=== PATIENT | female | born 1960 | race Caucasian/White ===

== ENCOUNTER 2017-08-23 10:53 | Emergency (ER) | payer OTHER ==
[2017-08-23] MEDS ORDERED: Morphine 10 MG/ML Syringe IM ONE (11:31)
--- NOTE | 2017-08-23 11:34 | EDM.PDOC ---
ED HPI GENERAL MEDICAL PROBLEM - General Chief Complaint: Back Pain or Injury Stated Complaint: BACK PAIN Time Seen by Provider: 08/23/17 11:22 Source of Information: Reports: Patient, Family, RN Notes Reviewed History Limitations: Reports: No Limitations - History of Present Illness INITIAL COMMENTS - FREE TEXT/NARRATIVE: 56-year-old female presents emergency department day complaint of mid back pain , she states been going on for about 12 hours had difficulty sleeping last night has been diaphoretic at times no shortness of breath she states the pain starts in the middle of her back around her shoulder blade and radiates around to the front underneath her left breast and she does complain of left arm tingling as well. Denies any trauma or lifting injury - Related Data Allergies Allergy/AdvReac Type Severity Reaction Status Date / Time No Known Allergies Allergy Verified 08/23/17 11:07 Home Meds: Home Meds Lisinopril/Hydrochlorothiazide [Lisinopril-Hctz 20-25 mg Tab] 10/01/15 [History ] Metoprolol Succinate [Toprol XL] 10/01/15 [History] Pantoprazole [ProTONIX Granules] 10/01/15 [History] amLODIPine [Norvasc] 10/01/15 [History] metFORMIN [Glucophage] 10/01/15 [History] traZODone 10/01/15 [History] Cyclobenzaprine [Flexeril] 10 mg PO 08/23/17 [History] Diclofenac Sodium [Voltaren] 1 tab PO BID 08/23/17 [History] Past Medical History Cardiovascular History: Reports: High Cholesterol, Hypertension Gastrointestinal History: Reports: GERD Endocrine/Metabolic History: Reports: Diabetes, Type II - Past Surgical History Female Surgical History: Reports: Tubal Ligation Social & Family History - Tobacco Use Smoking Status *Q: Current Every Day Smoker Years of Tobacco use: 40 Packs/Tins Daily: 0.1 ED ROS GENERAL - Review of Systems Review Of Systems: See Below Constitutional: Reports: Diaphoresis HEENT: Reports: No Symptoms Respiratory: Reports: No Symptoms Cardiovascular: Reports: Chest Pain GI/Abdominal: Reports: No Symptoms : Reports: No Symptoms Musculoskeletal: Reports: Back Pain Skin: Reports: No Symptoms Neurological: Reports: Tingling (Left arm) ED EXAM, UPPER BACK/NECK PAIN - Physical Exam Exam: See Below Exam Limited By: No Limitations General Appearance: Alert, Mild Distress Eye Exam: Bilateral Eye: Normal Inspection Head Exam: Atraumatic, Normocephalic Neck Exam: Non-Tender, Full Range of Motion, Normal Alignment, Normal Inspection Cardiovascular/Respiratory: Regular Rate, Rhythm, No M/R/G, Normal Breath Sounds , No Respiratory Distress GI/Abdominal: Soft, Non-Tender Back Exam: Normal Inspection, Full Range of Motion. No: CVA Tenderness (R), CVA Tenderness (L) Course - Vital Signs Last Recorded V/S: Last Vital Signs Temp 96.6 F 08/23/17 11:21 Pulse 107 H 08/23/17 11:21 Resp 20 08/23/17 11:21 BP 187/117 H 08/23/17 12:10 Pulse Ox 97 08/23/17 11:21 - Orders/Labs/Meds Orders: Active Orders 24 hr Category Date Time Status Cardiac Monitoring [RC] .As Directed Care 08/23/17 11:28 Active EKG Documentation Completion [RC] ASDIRECTED Care 08/23/17 11:31 Active EKG 12 Lead [EK] Stat Ther 08/23/17 11:30 Ordered Labs: Laboratory Tests 08/23/17 08/23/17 Range/Units 11:38 11:38 WBC 10.0 (4.5-11.0) K/uL RBC 5.64 H (3.30-5.50) M/uL Hgb 16.2 H (12.0-15.0) g/dL Hct 46.7 (36.0-48.0) % MCV 83 (80-98) fL MCH 29 (27-31) pg MCHC 35 (32-36) % Plt Count 275 (150-400) K/uL Neut % (Auto) 61 (36-66) % Lymph % (Auto) 28 (24-44) % [place] % (Auto) 7 H (2-6) % Eos % (Auto) 3 (2-4) % Baso % (Auto) 0 (0-1) % Sodium 141 (140-148) mmol/L Potassium 4.2 (3.6-5.2) mmol/L Chloride 106 (100-108) mmol/L Carbon Dioxide 25 (21-32) mmol/L Anion Gap 10.2 (5.0-14.0) mmol/L BUN 11 (7-18) mg/dL Creatinine 0.7 (0.6-1.0) mg/dL Est Cr Clr Drug Dosing 85.01 mL/min Estimated GFR (MDRD) > 60 (>60) Glucose 133 H (74-106) mg/dL Calcium 9.3 (8.5-10.1) mg/dL Total Bilirubin 0.6 (0.2-1.0) mg/dL AST 17 (15-37) U/L ALT 56 (12-78) U/L Alkaline Phosphatase 71 (46-116) U/L Troponin I < 0.017 (0.000-0.056) ng/mL Total Protein 7.4 (6.4-8.2) g/dL Albumin 4.0 (3.4-5.0) g/dL Globulin 3.4 (2.3-3.5) g/dL Albumin/Globulin Ratio 1.2 (1.2-2.2) Meds: Medications Discontinued Medications Generic Name Dose Route Start Last Admin Trade Name Guanaco PRN Reason Stop Dose Admin Morphine Sulfate 5 mg 08/23/17 11:31 08/23/17 11:48 Morphine IM 08/23/17 11:32 5 mg ONETIME ONE Administration Departure - Departure Time of Disposition: 12:33 Disposition: Home, Self-Care 01 Condition: Good Clinical Impression: Mid back pain - Discharge Information Referrals: Adam Corea MD [Primary Care Provider] - Forms: ED Department Discharge Additional Instructions: Continue to use her diclofenac as needed, in combination with Flexeril for baseline pain control, for breakthrough pain use the hydrocodone, Please followup with your primary care provider in 3-5 days if not better, please call return to the emergency department with worsening of symptoms. - My Orders Last 24 Hours: My Active Orders 08/23/17 11:28 Cardiac Monitoring [RC] .As Directed 08/23/17 11:30 EKG 12 Lead [EK] Stat 08/23/17 11:31 EKG Documentation Completion [RC] ASDIRECTED - Assessment/Plan Last 24 Hours: My Active Orders 08/23/17 11:28 Cardiac Monitoring [RC] .As Directed 08/23/17 11:30 EKG 12 Lead [EK] Stat 08/23/17 11:31 EKG Documentation Completion [RC] ASDIRECTED Plan: Assessment Acuity = acute Site and laterality = mid back thoracic pain left side Etiology = probably related to muscle spasm Manifestations = none Location of injury = Home Lab values = CBC, CMP, troponin all within normal limits EKG demonstrates a sinus rhythm no ST changes or depressions Plan She had good relief with 5 mg morphine provided should discharged home with hydrocodone 5/325 one tablet by mouth 3 times a day when necessary total #6 tablets she'll continue to use the Diflucan intact and Flexeril that she has at home follow-up with primary care 3-5 days if no improvement This note was dictated using [employer] voice recognition software please call with any questions on syntax or jerod.
[2017-08-23 12:19] VITALS: BP 187/117
== END 2017-08-23 12:42 | disposition home or self-care (01) ==
LOC: JP.ED 10:53
DX: M54.6 Pain in thoracic spine (principal); E78.00 Pure hypercholesterolemia, unspecified; I10 Essential (primary) hypertension; E11.9 Type 2 diabetes mellitus without complications; Z79.84 Long term (current) use of oral hypoglycemic drugs; F17.210 Nicotine dependence, cigarettes, uncomplicated; K21.9 Gastro-esophageal reflux disease without esophagitis
CPT/HCPCS: 36415; 80053; 84484; 85025; 93005; 96372; 99284; J2270

== ENCOUNTER 2017-11-07 08:39 | Day surgery (SDC) | payer OTHER ==
[2017-11-07] MEDS ORDERED: Propofol 200 MG/20 ML SDV ONE (08:54)
[2017-11-07] MEDS ORDERED: Midazolam 1 MG/ML 2 ML SDV ONE (08:54)
[2017-11-07] MEDS ORDERED: fentaNYL 100 MCG/2 ML SDV ONE (08:54)
[2017-11-07] MEDS ORDERED: Glycopyrrolate 0.2 MG/ML 2 ML SDV IVPUSH ONE (09:45)
[2017-11-07] MEDS ORDERED: Dextrose 5%-Lactated Ringers 1,000 ML IV SCH (09:45)
[2017-11-07 11:05] VITALS: BP 118/74
--- NOTE | 2017-11-11 11:20 | OR ---
DATE OF PROCEDURE: 11/07/2017 PREOPERATIVE DIAGNOSES: Severe gastroesophageal reflux symptoms and epigastric pain with postprandial bloating. POSTOPERATIVE DIAGNOSIS: Severe esophagitis with retained food within the esophagus and large gastric bezoar. OPERATIVE PROCEDURE: Upper GI endoscopy with biopsies of antrum for CLOtest ([id number]). ANESTHESIA: IV sedation. INDICATION FOR PROCEDURE: A 56-year-old longstanding diabetic presenting with complex picture of severe reflux symptoms occasionally associated with some aspiration of esophageal contents and postprandial bloating and discomfort. She has been on an anti-bezoar diet with the assumption that we are dealing with some degree of gastroparesis. Plan is to proceed with upper GI endoscopy with biopsies as indicated. Potential risks, including bleeding and perforation, were discussed, and the patient wishes to proceed. DETAILS OF PROCEDURE: The patient was taken to the operating room and placed in a left lateral decubitus position. IV sedation was administered, after which the upper GI endoscope was passed orally through the length of the esophagus and into the stomach with retroflexion view of the fundus, and thereafter through the pyloric channel into the junction of the third and fourth portions of the duodenum. Findings included some redness and edema of the hypopharynx and larynx. As one passed into the esophagus, some scattered fluid was noted in the upper aspect of the esophagus, and as one passed more distally, there was some scattered fluid, as well as bilious-type material was present within the esophagus. The distal third of the esophagus was associated with quite severe generalized esophagitis, likely related to the retained food and bile irritating the distal esophageal surface. No significant hiatal hernia was present. As one passed into the stomach, a large gastric bezoar was present filling a large portion of the stomach and associated with some diffuse redness of the gastric surfaces where the food had been likely present for some time. The pyloric channel was widely open, i.e. there was no evidence of gastric outlet obstruction from mechanical standpoint, and the visualized portion of the duodenum was unremarkable. At this point, biopsies were obtained from the antrum and sent for CLOtest for H. pylori. Minimal bleeding from the biopsy sites was seen and the procedure then concluded. This would appear to be a fairly urgent situation in terms of surgical correction. The standard surgical approach at this point would be to proceed with a high proximal gastrectomy, leaving only a cuff of stomach, and draining this with a Caio-en-Y gastrojejunostomy. This would essentially take the stomach out of the circuit and result in much improvement of her symptoms. From a safety standpoint, this appears to be fairly urgent, given the patient's reports of some aspiration episode, as well as severe inflammation of esophagus and stomach as noted above. We will at this point, plan to proceed with surgical intervention tomorrow. She was recently seen by Cardiology in [place], who felt the patient was a satisfactory surgical candidate. Ean Rivero MD /[id number]
== END 2017-11-07 11:18 | disposition home or self-care (01) ==
LOC: JP.SDS 08:39
PROVIDERS: ATTEND Surgery
DX: K21.9 Gastro-esophageal reflux disease without esophagitis (principal); K20.9 Esophagitis, unspecified; I10 Essential (primary) hypertension; T18.2XXA Foreign body in stomach, initial encounter
CPT/HCPCS: 43239; 82962; 87081; J2250; J2704; J3010; J7042; J3490

== ENCOUNTER 2017-11-10 06:40 | Inpatient (IN) | payer OTHER ==
[2017-11-10] MEDS ORDERED: Bupivacaine 0.5% 30 ML SDV ONE (06:57)
[2017-11-10] MEDS ORDERED: cefOXitin 2 GM Vial ONE (06:57)
[2017-11-10] MEDS ORDERED: Bupivacaine 0.5%/EPINEPHrine 1:200,000 50 ML MDV ONE (06:58)
[2017-11-10] MEDS ORDERED: Scopolamine 1.5 MG Transdermal Patch TOP SCH (07:15)
[2017-11-10] MEDS ORDERED: Acetaminophen 500 MG Tab PO ONE (07:15)
[2017-11-10] MEDS ORDERED: Gabapentin 300 MG Cap PO ONE (07:15)
[2017-11-10] MEDS ORDERED: Celecoxib 200 MG Cap PO ONE (07:15)
[2017-11-10] MEDS ORDERED: fentaNYL 250 MCG/5 ML SDV ONE ×2 (07:17→10:36)
[2017-11-10] MEDS ORDERED: Succinylcholine 200 MG/10 ML MDV ONE (07:18)
[2017-11-10] MEDS ORDERED: Propofol 200 MG/20 ML SDV ONE (07:18)
[2017-11-10] MEDS ORDERED: Glycopyrrolate 0.2 MG/ML 5 ML MDV ONE (07:18)
[2017-11-10] MEDS ORDERED: Ondansetron 4 MG/2 ML SDV ONE (07:18)
[2017-11-10] MEDS ORDERED: Dexamethasone 4 MG/ML SDV ONE (07:18)
[2017-11-10] MEDS ORDERED: Neostigmine Methylsulfate 1 MG/ML 5 ML Syringe ONE (07:18)
[2017-11-10] MEDS ORDERED: Rocuronium 50 MG/5 ML Vial ONE (07:18)
[2017-11-10] MEDS ORDERED: Lidocaine 0.4%/D5W 2 GM/500 ML BAG IV SCH (08:00)
[2017-11-10] MEDS ORDERED: Dextrose 5%-Lactated Ringers 1,000 ML IV SCH (08:00)
[2017-11-10] MEDS ORDERED: Ketamine 500 MG/5 ML MDV IV SCH (08:00)
[2017-11-10] MEDS ORDERED: Ropivacaine 44 ML, Dexamethasone 8 MG, EPINEPHrine 0.4 MG, Sodium Chloride 0.9% 33.6 ML NERVRT SCH ×4 (08:00)
[2017-11-10] MEDS ORDERED: Lidocaine 2% 100 MG/5 ML Syringe IVPUSH ONE (08:00)
[2017-11-10] MEDS ORDERED: cefOXitin 2 GM in Sodium Chloride 0.9% 50 ML IV ONE (08:45)
[2017-11-10] MEDS ORDERED: Lactated Ringers 1,000 ML ONE (10:36)
[2017-11-10] MEDS ORDERED: Pantoprazole 40 MG Vial IVPUSH SCH (12:00)
[2017-11-10] MEDS ORDERED: Insulin Aspart 100 Units/ML 3 ML Pen SUBCUT PRN (12:13)
[2017-11-10] MEDS: Ondansetron 4 MG/2 ML SDV IVPUSH PRN (12:32)
[2017-11-10] MEDS: Acetaminophen Soln 650 MG/20.3 ML UD Cup PO SCH ×3 (12:46→23:47)
[2017-11-10] MEDS ORDERED: 50% Dextrose in Water 50 ML Syringe IVPUSH PRN (13:00)
[2017-11-10] MEDS ORDERED: Metoclopramide 10 MG/2 ML SDV IVPUSH PRN (13:00)
[2017-11-10] MEDS ORDERED: Labetalol 20 MG/4 ML Syringe IVPUSH PRN (13:00)
[2017-11-10] MEDS ORDERED: Glucagon,Human Recombinant 1 MG Vial IM PRN (13:00)
[2017-11-10] MEDS ORDERED: diphenhydrAMINE 50 MG/ML SDV IVPUSH PRN (13:00)
[2017-11-10] MEDS: cefOXitin 2 GM in Sodium Chloride 0.9% 50 ML IV SCH ×2 (13:31→19:35)
[2017-11-10] MEDS: Gabapentin 250 MG/5 ML Solution ML 470 ML Bottle PO SCH ×2 (13:33→20:23)
[2017-11-10] MEDS: hydrOXYzine HCl 100 MG/2 ML SDV IM PRN (13:34)
[2017-11-10] MEDS ORDERED: MVI, Adult with Vitamin K 10 ML, Thiamine 200 MG, Chromium/Copper/Mang/Selen/Zn 1 ML in... IV SCH ×4 (16:00)
[2017-11-10] MEDS: Heparin Sodium 5,000 Units/ML Vial SUBCUT SCH (17:06)
[2017-11-10] MEDS: Insulin Aspart 100 Units/ML 3 ML Pen SUBCUT PRN ×2 (17:30→21:54)
[2017-11-10] MEDS: NIFEdipine 30 MG Tab.ER PO SCH (20:23)
[2017-11-10] MEDS: Labetalol 100 MG Tab PO SCH (20:23)
[2017-11-10] MEDS: Dextrose 5%-Lactated Ringers 1,000 ML IV SCH (23:47)
[2017-11-11] MEDS ORDERED: Coagulation Factor VIIa Recombinant (per MCG) 2 MG Vial IVPUSH ONE (00:04)
[2017-11-11] MEDS: cefOXitin 2 GM in Sodium Chloride 0.9% 50 ML IV SCH ×2 (01:22→07:22)
[2017-11-11] MEDS: Heparin Sodium 5,000 Units/ML Vial SUBCUT SCH ×2 (03:24→16:16)
[2017-11-11] MEDS ORDERED: Iohexol 647 MG/ML 50 ML SDV PO ONE (03:45)
[2017-11-11] MEDS: Acetaminophen Soln 650 MG/20.3 ML UD Cup PO SCH ×4 (05:04→23:59)
[2017-11-11] MEDS: Insulin Aspart 100 Units/ML 3 ML Pen SUBCUT PRN ×2 (05:12→10:23)
[2017-11-11] MEDS: Dextrose 5%-Lactated Ringers 1,000 ML IV SCH (05:58)
[2017-11-11] MEDS: Celecoxib 200 MG Cap PO SCH (07:19)
[2017-11-11] MEDS ORDERED: Ondansetron 4 MG Tab.DIS PO PRN (07:27)
[2017-11-11] MEDS ORDERED: SUMAtriptan 50 MG Tab PO PRN (07:28)
[2017-11-11] MEDS ORDERED: Meclizine 25 MG Tab PO PRN (07:28)
[2017-11-11] MEDS ORDERED: Cetirizine 10 MG Tab PO PRN (07:28)
[2017-11-11] MEDS ORDERED: traZODone 50 MG Tab PO PRN (07:28)
[2017-11-11] MEDS ORDERED: Cyclobenzaprine 10 MG Tab PO PRN (07:28)
[2017-11-11] MEDS: Lactated Ringers 1,000 ML IV SCH (07:52)
--- NOTE | 2017-11-11 08:16 | PCM.PN ---
- General Info Date of Service: 11/11/17 Admission Dx/Problem (Free Text): Severe diabetic gastroparesis Subjective Update: Patient is POD #1 is up, ambulating, using the bathroom and tolerating the Step 1 diet. She had a low grade temperature overnight. Throughout the night when she was up to urinate her SANDY drain site would bleed and leak. Dr. Rivero was contacted and the drain will be repaired this am. Functional Status: Reports: Pain Controlled, Tolerating Diet, Ambulating, Urinating, Incentive Spirometry - Review of Systems General: Reports: No Symptoms HEENT: Reports: No Symptoms Pulmonary: Reports: No Symptoms Cardiovascular: Reports: No Symptoms Gastrointestinal: Reports: No Symptoms Genitourinary: Reports: No Symptoms Musculoskeletal: Reports: No Symptoms Skin: Reports: No Symptoms Neurological: Reports: No Symptoms Psychiatric: Reports: No Symptoms Systems Review Comment:: Remainder of ROS is without any negative pertinent or positives. - Patient Data Vitals - Most Recent: Last Vital Signs Temp 98.5 F 11/11/17 07:56 Pulse 100 11/11/17 07:56 Resp 16 11/11/17 07:56 BP 149/91 H 11/11/17 07:56 Pulse Ox 94 L 11/11/17 07:56 Weight - Most Recent: 197 lb I&O - Last 24 Hours: Intake & Output 11/10/17 11/11/17 11/11/17 22:59 06:59 14:59 Intake Total 1202 2485 50 Output Total 1040 640 225 Balance 162 1845 -175 Med Orders - Current: Current Medications Acetaminophen (Tylenol) 650 mg PO Q6H [facility] Last Admin: 11/11/17 05:04 Dose: 650 mg Celecoxib (Celebrex) 200 mg PO DAILY@0800 [facility] Last Admin: 11/11/17 07:19 Dose: 200 mg Cetirizine HCl (Zyrtec) 10 mg PO ASDIRECTED PRN PRN Reason: Allergies Cyanocobalamin (Vitamin B12) 1,000 mcg IM ONETIME ONE Stop: 11/12/17 09:01 Cyclobenzaprine HCl (Flexeril) 10 mg PO TID PRN PRN Reason: Muscle Spasm Dextrose/Water (Dextrose 50% In Water) 50 ml IVPUSH ONETIME PRN PRN Reason: ACCUCHECK LESS THAN 70 Diphenhydramine HCl (Benadryl) 25 - 50 mg IVPUSH Q4H PRN PRN Reason: ITCHING Gabapentin (Neurontin) 300 mg PO TID [facility] Last Admin: 11/10/17 20:23 Dose: 300 mg Glucagon (Glucagen) 1 mg IM ONETIME PRN PRN Reason: ACCUCHECK LESS THAN 70 Heparin Sodium (Porcine) (Heparin Sodium) 5,000 units SUBCUT Q12H [facility] Last Admin: 11/11/17 03:24 Dose: Not Given Hydroxyzine HCl (Vistaril) 75 - 100 mg IM Q4H PRN PRN Reason: pain Last Admin: 11/10/17 13:34 Dose: 100 mg Cefoxitin Sodium 2 gm/ Sodium (Chloride) 50 mls @ 100 mls/hr IV Q6H [facility] Stop: 11/11/17 08:29 Last Admin: 11/11/17 07:22 Dose: 100 mls/hr Lactated Ringer's (Ringers, Lactated) 1,000 mls @ 100 mls/hr IV ASDIRECTED [facility] Last Admin: 11/11/17 07:52 Dose: 100 mls/hr Multivitamins/Minerals 10 ml/Thiamine HCl 200 mg/ Chromium/Copper/Manganese/ Seleni/Zn 1 ml/ Lactated Ringer's 1,013 mls @ 100 mls/hr IV DAILY@1600 [facility] Insulin Aspart (Novolog) 0 unit SUBCUT Q6H PRN; Protocol PRN Reason: PER CORRECTIONAL DOSING Last Admin: 11/11/17 05:12 Dose: 7 units Labetalol HCl (Normodyne) 5 - 15 mg IVPUSH Q1H PRN PRN Reason: SBP over 160 OR DBP over 95 Last Admin: 11/10/17 14:53 Dose: 5 mg Labetalol HCl (Normodyne) 100 mg PO BID [facility] Last Admin: 11/10/17 20:23 Dose: 100 mg Meclizine HCl (Antivert) 25 mg PO Q6H PRN PRN Reason: Dizziness Metoclopramide HCl (Reglan) 10 mg IVPUSH Q6H PRN PRN Reason: NAUSEA NOT CONTROL BY ZOFRAN Miscellaneous Information (Remove Patch) 1 ea TRDERM ONETIME ONE Stop: 11/12/17 10:01 Nifedipine (Procardia Xl) 60 mg PO BEDTIME [facility] Last Admin: 11/10/17 20:23 Dose: 60 mg Scopolamine Patch (Check) 1 each TOP DAILY [facility] Stop: 11/12/17 13:01 Ondansetron HCl (Zofran) 4 mg IVPUSH Q4H PRN PRN Reason: Nausea/Vomiting Last Admin: 11/10/17 12:32 Dose: 4 mg Ondansetron HCl (Zofran Odt) 4 mg PO Q4H PRN PRN Reason: Nausea/Vomiting Pantoprazole Sodium (Protonix Iv) 40 mg IVPUSH Q24H [facility] Last Admin: 11/10/17 12:40 Dose: 40 mg Scopolamine (Transderm-Scop) 1.5 mg TOP Q72H [facility] Stop: 11/12/17 09:00 Last Admin: 11/10/17 06:56 Dose: 1.5 mg Sumatriptan Succinate (Imitrex) 50 mg PO ASDIRECTED PRN PRN Reason: Headache Trazodone HCl (Trazodone) 50 mg PO BEDTIME PRN PRN Reason: Sleep Discontinued Medications Acetaminophen (Tylenol Extra Strength) 1,000 mg PO ONETIME ONE Stop: 11/10/17 07:16 Last Admin: 11/10/17 06:58 Dose: 1,000 mg Bupivacaine HCl (Marcaine 0.5%) Confirm Administered Dose 30 ml .ROUTE .STK-MED ONE Stop: 11/10/17 06:58 Bupivacaine HCl/Epinephrine Bitart (Marcaine 0.5%/Epinephrine 1:200,000) Confirm Administered Dose 50 ml .ROUTE .STK-MED ONE Stop: 11/10/17 06:59 Cefoxitin Sodium (Mefoxin) Confirm Administered Dose 2 gm .ROUTE .STK-MED ONE Stop: 11/10/17 06:58 Last Admin: 11/10/17 10:01 Dose: 2 gm Celecoxib (Celebrex) 200 mg PO ONETIME ONE Stop: 11/10/17 07:16 Last Admin: 11/10/17 06:56 Dose: 200 mg Ropivacaine 44 ml/Dexamethasone 8 mg/Epinephrine HCl 0.4 mg/ Sodium Chloride 33.6 ml 0 ml NERVRT ASDIRECTED [facility] Last Admin: 11/10/17 10:00 Dose: 80 syringe Dexamethasone (Dexamethasone) Confirm Administered Dose 4 mg .ROUTE .STK-MED ONE Stop: 11/10/17 07:19 Factor VIIa (Recombinant) (Novoseven Rt) 2,000 mcg IVPUSH ONETIME ONE Stop: 11/11/17 00:05 Last Admin: 11/11/17 00:33 Dose: 2,000 mcg Fentanyl (Sublimaze) Confirm Administered Dose 250 mcg .ROUTE .STK-MED ONE Stop: 11/10/17 07:18 Fentanyl (Sublimaze) Confirm Administered Dose 250 mcg .ROUTE .STK-MED ONE Stop: 11/10/17 10:37 Gabapentin (Neurontin) 300 mg PO ONETIME ONE Stop: 11/10/17 07:16 Last Admin: 11/10/17 06:56 Dose: 300 mg Glycopyrrolate (Robinul) Confirm Administered Dose 1 mg .ROUTE .STK-MED ONE Stop: 11/10/17 07:19 Cefoxitin Sodium 2 gm/ Sodium (Chloride) 50 mls @ 100 mls/hr IV ONETIME ONE Stop: 11/10/17 09:14 Last Admin: 11/10/17 08:45 Dose: 100 mls/hr Dextrose/Lactated Ringer's (Dextrose 5%-Lactated Ringers) 1,000 mls @ 100 mls/ hr IV ASDIRECTED [facility] Lidocaine HCl/Dextrose (Lidocaine 2 Gm/D5w 500 Ml) 2 gm in 500 mls @ 22.5 mls/ hr IV .[id number] MELISSA Stop: 11/11/17 06:13 Last Admin: 11/10/17 11:50 Dose: 1.5 mg/min, 22.5 mls/hr Ketamine HCl 100 mg/ Sodium (Chloride) 100 mls @ 18 mls/hr IV ASDIRECTED [facility] Insulin Human Regular 100 unit (/ Sodium Chloride) 100 mls @ 0 mls/hr IV TITRATE MELISSA; Protocol Lactated Ringer's (Ringers, Lactated) Confirm Administered Dose 1,000 mls @ as directed .ROUTE .STK-MED ONE Stop: 11/10/17 10:37 Dextrose/Lactated Ringer's (Dextrose 5%-Lactated Ringers) 1,000 mls @ 175.004 mls/hr IV ASDIRECTED MELISSA Last Admin: 11/11/17 05:58 Dose: 175.004 mls/hr Multivitamins/Minerals 10 ml/Thiamine HCl 200 mg/ Chromium/Copper/Manganese/ Seleni/Zn 1 ml/ Dextrose/Lactated Ringer's 1,013 mls @ 174.999 mls/hr IV DAILY@ 1600 MELISSA Last Admin: 11/10/17 17:05 Dose: 174.999 mls/hr Iohexol (Omnipaque-300) 50 ml PO ONETIME ONE Stop: 11/11/17 03:46 Last Admin: 11/11/17 04:23 Dose: 50 ml Ketamine HCl (Ketalar) 30 mg IV ASDIRECTED [facility] Lidocaine HCl (Xylocaine 2%) 100 mg IVPUSH ONETIME ONE Stop: 11/10/17 08:01 Last Admin: 11/10/17 11:51 Dose: Not Given Lidocaine HCl (Xylocaine-Mpf 1%) 5 ml INJECT ONETIME ONE Stop: 11/11/17 06:54 Last Admin: 11/11/17 07:19 Dose: 5 ml Neostigmine Methylsulfate (Neostigmine) Confirm Administered Dose 5 mg .ROUTE .STK-MED ONE Stop: 11/10/17 07:19 Ondansetron HCl (Zofran) Confirm Administered Dose 4 mg .ROUTE .STK-MED ONE Stop: 11/10/17 07:19 Propofol (Diprivan 20 Ml) Confirm Administered Dose 200 mg .ROUTE .STK-MED ONE Stop: 11/10/17 07:19 Rocuronium Bovill (Zemuron) Confirm Administered Dose 50 mg .ROUTE .STK-MED ONE Stop: 11/10/17 07:19 Sodium Chloride (Normal Saline) 500 ml IRR .STK-MED ONE Stop: 11/10/17 10:02 Last Admin: 11/10/17 10:01 Dose: 500 ml Succinylcholine Chloride (Quelicin) Confirm Administered Dose 200 mg .ROUTE .STK -MED ONE Stop: 11/10/17 07:19 - Exam General: Alert, Oriented, Cooperative, No Acute Distress HEENT: Pupils Equal, Mucous Membr. Moist/Velarde Lungs: Clear to Auscultation, Normal Respiratory Effort Cardiovascular: Regular Rate, Regular Rhythm Extremities: Normal Range of Motion Skin: Warm, Dry, Intact Wound/Incisions: Drainage (Serosanguous drainage from drain. Drain site leaking and repaired this am. ) Neurological: No New Focal Deficit Psy/Mental Status: Alert, Normal Affect, Normal Mood - Problem List Review Problem List Initiated/Reviewed/Updated: Yes - Assessment Assessment:: Status post RNY gastrojujunostomy. - Plan Plan:: 1. Cefoxitin 100ml/hr q6h 2. Discontinue Iohexol 50mL PO 3. Discontinue lidocaine 4. Continue Scopolamine patch daily 5. Odansetron 4mg PO q4h prn for nausea 6. Start Sumatriptan 50mg PO as directed 7. Start trazadone PO 50mg at bedtime 8. Continue Step 2 diet without cereal 9. Discontinue cardiac monitoring 10. May shower 11. Will reevaluate prn or in am
[2017-11-11] MEDS: Gabapentin 250 MG/5 ML Solution ML 470 ML Bottle PO SCH ×3 (08:41→20:41)
[2017-11-11] MEDS: SCOPOLAMINE PATCH CHECK TOP SCH (08:42)
[2017-11-11] MEDS: Labetalol 100 MG Tab PO SCH ×2 (08:42→20:37)
[2017-11-11] MEDS: Pantoprazole 40 MG Delayed-Release Granules 1 Packet PO SCH (11:20)
--- NOTE | 2017-11-11 12:05 | CR ---
UGI wo KUB HISTORY: eval R -Y GBP FINDINGS: After administration of oral contrast, upright views were obtained. Post operative changes gastric bypass. Surgical drains in place. No evidence for leak. Contrast passes freely into proximal small bowel loops. IMPRESSION: No evidence for leak or obstruction.
[2017-11-11] MEDS: MVI, Adult with Vitamin K 10 ML, Thiamine 200 MG, Chromium/Copper/Mang/Selen/Zn 1 ML in... IV SCH ×4 (16:13)
[2017-11-11] MEDS: Ondansetron 4 MG/2 ML SDV IVPUSH PRN (16:13)
[2017-11-11] MEDS: NIFEdipine 30 MG Tab.ER PO SCH (20:36)
[2017-11-12] MEDS: Lactated Ringers 1,000 ML IV SCH (02:15)
[2017-11-12] MEDS: hydrOXYzine HCl 100 MG/2 ML SDV IM PRN (02:31)
[2017-11-12] MEDS: Heparin Sodium 5,000 Units/ML Vial SUBCUT SCH ×2 (05:04→15:47)
[2017-11-12] MEDS: Acetaminophen Soln 650 MG/20.3 ML UD Cup PO SCH ×4 (05:04→23:45)
--- NOTE | 2017-11-12 07:15 | PCM.PN ---
- General Info Date of Service: 11/12/17 Admission Dx/Problem (Free Text): Severe diabetic gastroparesis Subjective Update: Patient is POD #2 is up, ambulating, using the bathroom and tolerating the Step 1 diet. Her vitals were stable through the evening and the am. Her SANDY is till continuing to put out fluid 50cc over the last shift. She has had no coverage for sugars overnight although she ran slightly high. Functional Status: Reports: Pain Controlled, Tolerating Diet, Ambulating, Urinating, Incentive Spirometry - Review of Systems General: Reports: No Symptoms HEENT: Reports: No Symptoms Pulmonary: Reports: No Symptoms Cardiovascular: Reports: No Symptoms Gastrointestinal: Reports: No Symptoms Genitourinary: Reports: No Symptoms Musculoskeletal: Reports: No Symptoms Skin: Reports: No Symptoms Neurological: Reports: No Symptoms Psychiatric: Reports: No Symptoms Systems Review Comment:: Remainder of ROS is negative for any pertinent positives or negatives. - Patient Data Vitals - Most Recent: Last Vital Signs Temp 98.6 F 11/12/17 02:52 Pulse 92 11/12/17 02:52 Resp 16 11/12/17 02:52 BP 138/71 11/12/17 02:52 Pulse Ox 91 L 11/12/17 02:52 Weight - Most Recent: 197 lb I&O - Last 24 Hours: Intake & Output 11/11/17 11/12/17 11/12/17 22:59 06:59 14:59 Intake Total 1300 320 Output Total 610 815 Balance 690 -495 Lab Results Last 24 Hours: Laboratory Results - last 24 hr 11/12/17 11/12/17 Range/Units 04:15 04:15 WBC 12.4 H (4.5-11.0) K/uL RBC 3.40 (3.30-5.50) M/uL Hgb 9.7 L D (12.0-15.0) g/dL Hct 29.4 L (36.0-48.0) % MCV 87 (80-98) fL MCH 29 (27-31) pg MCHC 33 (32-36) % Plt Count 219 (150-400) K/uL Neut % (Auto) 65 (36-66) % Lymph % (Auto) 26 (24-44) % [place]orne % (Auto) 9 H (2-6) % Eos % (Auto) 0 L (2-4) % Baso % (Auto) 0 (0-1) % Sodium 138 L (140-148) mmol/L Potassium 3.7 (3.6-5.2) mmol/L Chloride 105 (100-108) mmol/L Carbon Dioxide 26 (21-32) mmol/L Anion Gap 10.7 (5.0-14.0) mmol/L BUN 12 (7-18) mg/dL Creatinine 0.7 (0.6-1.0) mg/dL Est Cr Clr Drug Dosing 85.01 mL/min Estimated GFR (MDRD) > 60 (>60) Glucose 163 H (74-106) mg/dL Calcium 7.8 L (8.5-10.1) mg/dL Phosphorus 2.2 L (2.5-4.9) mg/dL Magnesium 2.0 (1.8-2.4) mg/dL Total Bilirubin 0.5 (0.2-1.0) mg/dL AST 12 L (15-37) U/L ALT 37 (12-78) U/L Alkaline Phosphatase 53 (46-116) U/L Total Protein 5.6 L (6.4-8.2) g/dL Albumin 2.8 L (3.4-5.0) g/dL Globulin 2.8 (2.3-3.5) g/dL Albumin/Globulin Ratio 1.0 L (1.2-2.2) Med Orders - Current: Current Medications Acetaminophen (Tylenol) 650 mg PO Q6H [facility] Last Admin: 11/12/17 05:04 Dose: 650 mg Celecoxib (Celebrex) 200 mg PO DAILY@0800 [facility] Last Admin: 11/11/17 07:19 Dose: 200 mg Cetirizine HCl (Zyrtec) 10 mg PO ASDIRECTED PRN PRN Reason: Allergies Cyanocobalamin (Vitamin B12) 1,000 mcg IM ONETIME ONE Stop: 11/12/17 09:01 Cyclobenzaprine HCl (Flexeril) 10 mg PO TID PRN PRN Reason: Muscle Spasm Dextrose/Water (Dextrose 50% In Water) 50 ml IVPUSH ONETIME PRN PRN Reason: ACCUCHECK LESS THAN 70 Diphenhydramine HCl (Benadryl) 25 - 50 mg IVPUSH Q4H PRN PRN Reason: ITCHING Gabapentin (Neurontin) 300 mg PO TID [facility] Last Admin: 11/11/17 20:41 Dose: 300 mg Glucagon (Glucagen) 1 mg IM ONETIME PRN PRN Reason: ACCUCHECK LESS THAN 70 Heparin Sodium (Porcine) (Heparin Sodium) 5,000 units SUBCUT Q12H [facility] Last Admin: 11/12/17 05:04 Dose: 5,000 units Hydroxyzine HCl (Vistaril) 75 - 100 mg IM Q4H PRN PRN Reason: pain Last Admin: 11/12/17 02:31 Dose: 100 mg Lactated Ringer's (Ringers, Lactated) 1,000 mls @ 100 mls/hr IV ASDIRECTED [facility] Last Admin: 11/12/17 02:15 Dose: 100 mls/hr Multivitamins/Minerals 10 ml/Thiamine HCl 200 mg/ Chromium/Copper/Manganese/ Seleni/Zn 1 ml/ Lactated Ringer's 1,013 mls @ 100 mls/hr IV DAILY@1600 [facility] Last Admin: 11/11/17 16:13 Dose: 100 mls/hr Insulin Aspart (Novolog) 0 unit SUBCUT Q6H PRN; Protocol PRN Reason: PER CORRECTIONAL DOSING Last Admin: 11/11/17 10:23 Dose: 5 units Labetalol HCl (Normodyne) 5 - 15 mg IVPUSH Q1H PRN PRN Reason: SBP over 160 OR DBP over 95 Last Admin: 11/10/17 14:53 Dose: 5 mg Labetalol HCl (Normodyne) 100 mg PO BID [facility] Last Admin: 11/11/17 20:37 Dose: 100 mg Meclizine HCl (Antivert) 25 mg PO Q6H PRN PRN Reason: Dizziness Metoclopramide HCl (Reglan) 10 mg IVPUSH Q6H PRN PRN Reason: NAUSEA NOT CONTROL BY ZOFRAN Last Admin: 11/11/17 18:04 Dose: 10 mg Miscellaneous Information (Remove Patch) 1 ea TRDERM ONETIME ONE Stop: 11/12/17 10:01 Nifedipine (Procardia Xl) 60 mg PO BEDTIME [facility] Last Admin: 11/11/17 20:36 Dose: 60 mg Scopolamine Patch (Check) 1 each TOP DAILY [facility] Stop: 11/12/17 13:01 Last Admin: 11/11/17 08:42 Dose: Not Given Ondansetron HCl (Zofran) 4 mg IVPUSH Q4H PRN PRN Reason: Nausea/Vomiting Last Admin: 11/11/17 16:13 Dose: 4 mg Ondansetron HCl (Zofran Odt) 4 mg PO Q4H PRN PRN Reason: Nausea/Vomiting Pantoprazole Sodium (Protonix Granules) 40 mg PO Q24H [facility] Last Admin: 11/11/17 11:20 Dose: 40 mg Scopolamine (Transderm-Scop) 1.5 mg TOP Q72H [facility] Stop: 11/12/17 09:00 Last Admin: 11/10/17 06:56 Dose: 1.5 mg Sumatriptan Succinate (Imitrex) 50 mg PO ASDIRECTED PRN PRN Reason: Headache Trazodone HCl (Trazodone) 50 mg PO BEDTIME PRN PRN Reason: Sleep Discontinued Medications Acetaminophen (Tylenol Extra Strength) 1,000 mg PO ONETIME ONE Stop: 11/10/17 07:16 Last Admin: 11/10/17 06:58 Dose: 1,000 mg Bupivacaine HCl (Marcaine 0.5%) Confirm Administered Dose 30 ml .ROUTE .STK-MED ONE Stop: 11/10/17 06:58 Bupivacaine HCl/Epinephrine Bitart (Marcaine 0.5%/Epinephrine 1:200,000) Confirm Administered Dose 50 ml .ROUTE .STK-MED ONE Stop: 11/10/17 06:59 Cefoxitin Sodium (Mefoxin) Confirm Administered Dose 2 gm .ROUTE .STK-MED ONE Stop: 11/10/17 06:58 Last Admin: 11/10/17 10:01 Dose: 2 gm Celecoxib (Celebrex) 200 mg PO ONETIME ONE Stop: 11/10/17 07:16 Last Admin: 11/10/17 06:56 Dose: 200 mg Ropivacaine 44 ml/Dexamethasone 8 mg/Epinephrine HCl 0.4 mg/ Sodium Chloride 33.6 ml 0 ml NERVRT ASDIRECTED [facility] Last Admin: 11/10/17 10:00 Dose: 80 syringe Dexamethasone (Dexamethasone) Confirm Administered Dose 4 mg .ROUTE .STK-MED ONE Stop: 11/10/17 07:19 Factor VIIa (Recombinant) (Novoseven Rt) 2,000 mcg IVPUSH ONETIME ONE Stop: 11/11/17 00:05 Last Admin: 11/11/17 00:33 Dose: 2,000 mcg Fentanyl (Sublimaze) Confirm Administered Dose 250 mcg .ROUTE .STK-MED ONE Stop: 11/10/17 07:18 Fentanyl (Sublimaze) Confirm Administered Dose 250 mcg .ROUTE .STK-MED ONE Stop: 11/10/17 10:37 Gabapentin (Neurontin) 300 mg PO ONETIME ONE Stop: 11/10/17 07:16 Last Admin: 11/10/17 06:56 Dose: 300 mg Glycopyrrolate (Robinul) Confirm Administered Dose 1 mg .ROUTE .STK-MED ONE Stop: 11/10/17 07:19 Cefoxitin Sodium 2 gm/ Sodium (Chloride) 50 mls @ 100 mls/hr IV ONETIME ONE Stop: 11/10/17 09:14 Last Admin: 11/10/17 08:45 Dose: 100 mls/hr Dextrose/Lactated Ringer's (Dextrose 5%-Lactated Ringers) 1,000 mls @ 100 mls/ hr IV ASDIRECTED [facility] Lidocaine HCl/Dextrose (Lidocaine 2 Gm/D5w 500 Ml) 2 gm in 500 mls @ 22.5 mls/ hr IV .[id number] [facility] Stop: 11/11/17 06:13 Last Admin: 11/10/17 11:50 Dose: 1.5 mg/min, 22.5 mls/hr Ketamine HCl 100 mg/ Sodium (Chloride) 100 mls @ 18 mls/hr IV ASDIRECTED [facility] Insulin Human Regular 100 unit (/ Sodium Chloride) 100 mls @ 0 mls/hr IV TITRATE MELISSA; Protocol Lactated Ringer's (Ringers, Lactated) Confirm Administered Dose 1,000 mls @ as directed .ROUTE .STK-MED ONE Stop: 11/10/17 10:37 Dextrose/Lactated Ringer's (Dextrose 5%-Lactated Ringers) 1,000 mls @ 175.004 mls/hr IV ASDIRECTED [facility] Last Admin: 11/11/17 05:58 Dose: 175.004 mls/hr Multivitamins/Minerals 10 ml/Thiamine HCl 200 mg/ Chromium/Copper/Manganese/ Seleni/Zn 1 ml/ Dextrose/Lactated Ringer's 1,013 mls @ 174.999 mls/hr IV DAILY@ 1600 [facility] Last Admin: 11/10/17 17:05 Dose: 174.999 mls/hr Cefoxitin Sodium 2 gm/ Sodium (Chloride) 50 mls @ 100 mls/hr IV Q6H [facility] Stop: 11/11/17 08:29 Last Admin: 11/11/17 07:22 Dose: 100 mls/hr Iohexol (Omnipaque-300) 50 ml PO ONETIME ONE Stop: 11/11/17 03:46 Last Admin: 11/11/17 04:23 Dose: 50 ml Ketamine HCl (Ketalar) 30 mg IV ASDIRECTED [facility] Lidocaine HCl (Xylocaine 2%) 100 mg IVPUSH ONETIME ONE Stop: 11/10/17 08:01 Last Admin: 11/10/17 11:51 Dose: Not Given Lidocaine HCl (Xylocaine-Mpf 1%) 5 ml INJECT ONETIME ONE Stop: 11/11/17 06:54 Last Admin: 11/11/17 07:19 Dose: 5 ml Neostigmine Methylsulfate (Neostigmine) Confirm Administered Dose 5 mg .ROUTE .STK-MED ONE Stop: 11/10/17 07:19 Ondansetron HCl (Zofran) Confirm Administered Dose 4 mg .ROUTE .STK-MED ONE Stop: 11/10/17 07:19 Pantoprazole Sodium (Protonix Iv) 40 mg IVPUSH Q24H [facility] Last Admin: 11/10/17 12:40 Dose: 40 mg Propofol (Diprivan 20 Ml) Confirm Administered Dose 200 mg .ROUTE .STK-MED ONE Stop: 11/10/17 07:19 Rocuronium [place] (Zemuron) Confirm Administered Dose 50 mg .ROUTE .STK-MED ONE Stop: 11/10/17 07:19 Sodium Chloride (Normal Saline) 500 ml IRR .STK-MED ONE Stop: 11/10/17 10:02 Last Admin: 11/10/17 10:01 Dose: 500 ml Succinylcholine Chloride (Quelicin) Confirm Administered Dose 200 mg .ROUTE .STK -MED ONE Stop: 11/10/17 07:19 - Exam General: Alert, Oriented, Cooperative, No Acute Distress HEENT: Pupils Equal, Mucous Membr. Moist/[place] Neck: Supple Lungs: Clear to Auscultation, Normal Respiratory Effort Cardiovascular: Regular Rate, Regular Rhythm Extremities: Normal Range of Motion, Other (Left hand edematous due to IV. IV will be removed this am to help with edema. Right sided hematoma.) Skin: Warm, Dry, Intact Neurological: No New Focal Deficit Psy/Mental Status: Alert, Normal Affect, Normal Mood - Problem List Review Problem List Initiated/Reviewed/Updated: Yes - Assessment Assessment:: Status post RNY gastrojujunostomy. - Plan Plan:: 1.Continue Step 2 diet without cereal 2. May shower 3. Potassium Phosphate 75 karolina moles 4. IV infiltrate and will be replaced 5. Will reevaluate prn or in am
[2017-11-12] MEDS: SCOPOLAMINE PATCH CHECK TOP SCH (08:24)
[2017-11-12] MEDS: Gabapentin 250 MG/5 ML Solution ML 470 ML Bottle PO SCH ×3 (08:25→20:14)
[2017-11-12] MEDS: Celecoxib 200 MG Cap PO SCH (08:51)
[2017-11-12] MEDS: Labetalol 100 MG Tab PO SCH ×2 (08:52→20:14)
[2017-11-12] MEDS ORDERED: Potassium Phosphates 3 mMole/ML 5 ML SDV IV ONE (09:00)
[2017-11-12] MEDS ORDERED: Cyanocobalamin (Vitamin B12) 1,000 MCG/ML SDV IM ONE (09:00)
[2017-11-12] MEDS ORDERED: POTASSIUM PHOSPHATES IV SCH (10:00)
[2017-11-12] MEDS ORDERED: SODIUM CHLORIDE IV SCH (10:00)
[2017-11-12] MEDS: Potassium Phosphates 25 MMOLE in Sodium Chloride 0.9% 250 ML IV SCH ×2 (13:08→17:50)
[2017-11-12] MEDS: Pantoprazole 40 MG Delayed-Release Granules 1 Packet PO SCH (13:17)
[2017-11-12] MEDS: MVI, Adult with Vitamin K 10 ML, Thiamine 200 MG, Chromium/Copper/Mang/Selen/Zn 1 ML in... IV SCH ×4 (15:35)
[2017-11-12] MEDS: NIFEdipine 30 MG Tab.ER PO SCH (20:14)
[2017-11-13] MEDS: Lactated Ringers 1,000 ML IV SCH (04:03)
[2017-11-13] MEDS: Heparin Sodium 5,000 Units/ML Vial SUBCUT SCH (04:03)
[2017-11-13] MEDS: Acetaminophen Soln 650 MG/20.3 ML UD Cup PO SCH (06:04)
[2017-11-13 07:08] VITALS: BP 125/66
[2017-11-13] MEDS: Celecoxib 200 MG Cap PO SCH (08:09)
[2017-11-13] MEDS: Gabapentin 250 MG/5 ML Solution ML 470 ML Bottle PO SCH (08:10)
--- NOTE | 2017-11-13 09:25 | DISCH ---
ADMISSION DIAGNOSES: Diabetic gastroparesis, hypertension, depression, hyperlipidemia, nephrolithiasis, urethral stent, sinusitis, gastroesophageal reflux disease, vitamin D deficiency, and allergic rhinitis. DISCHARGE DIAGNOSES: Complicated diabetic gastroparesis, moderate hepatomegaly, foreshortened small bowel mesentery with diaphragmatic hernia. PROCEDURE PERFORMED: Diagnostic laparoscopy with partial proximal gastrectomy with Caio-en- Y gastrojejunostomy, small bowel resection, liver biopsy, and repair of diaphragmatic hernia. Date of surgery 11/10/2017. Surgeon, Ean Rivero M.D. HISTORY: Yuni Snyder is a 56-year-old female with complicated diabetic gastroparesis refractory to medical management. After preoperative evaluation and discussion of possible risks and possible complications, she wished to proceed with surgical procedure. HOSPITAL COURSE: Yuni had her surgery on 11/10/2017. She had no operative complications. On postop day 1, she was started on a step-2 diet with no cereal. Blood sugars were managed with sliding scale of NovoLog. Her vital signs were stable. Oral intake was 720. She did have some bleeding at the site of the SANDY drain site. Ean Rivero M.D. did reinforce that area by putting on a deeper suture at bedside which resolved the bleeding. On postop day 2, blood sugars continued to decrease. She was given K-Phos for replacement of a low phosphorus and she continued to work on pulmonary toilet and ambulation along with getting in fluids. On postop day 3, vital signs were stable. Pain was managed on Celebrex and Tylenol. Oral intake adequate at 1638 hours. SANDY drain put out 45 mL and will be discontinued prior to discharge. She had adequate dietary instructions and was able to be discharged to home. Blood sugars for the past 24 hours have been 118, 125, and 130. PHYSICAL EXAMINATION: GENERAL: Yuni Snyder is a 56-year-old female. VITAL SIGNS: Height is 5 feet 6 inches. Weight is 197 pounds. TPR 98.2, 88, 16, blood pressure 125/66. HEENT: Negative. NECK: Supple. HEART: Regular rate and rhythm. LUNGS: Clear. ABDOMEN: Incisions look good. There is some bruising noted. She does have a small subcutaneous hematoma, nontender, under the trocar site. Abdominal binder has been on. EXTREMITIES: Without peripheral edema. SKIN: Without rash. DISPOSITION: Discharged to home. CONDITION: Stable and improving. FOLLOWUP: Followup appointments with Miranda Quick PA-C on 11/20/2017 at 10:00 a.m. MEDICATIONS: New prescriptions: 1. Tylenol 650 mg oral q.6 hours, chewable or liquid for 2 weeks. 2. Hold Lipitor 10 mg at bedtime for 2 weeks and restart. 3. Celebrex 200 mg p.o. daily for 14 days. To resume home medications: 1. Zyrtec 10 mg as directed daily. 2. Flexeril 10 mg 3 times a day p.r.n. muscle spasms. 3. Labetalol 100 mg oral twice daily. 4. Meclizine 25 mg oral q.6 hours p.r.n. dizziness. 5. Nifedipine (Adalat CC) 60 mg oral daily. 6. Zofran ODT 4 mg every 8 hours p.r.n. nausea. 7. Protonix 40 mg oral daily. 8. Imitrex 50 mg oral as directed p.r.n. headache. 9. Trazodone 50 mg at bedtime p.r.n. sleep. Discontinue takin. Voltaren. 2. Vitamin D3. 3. Doxycycline. 4. Robaxin. 5. Glipizide. 6. Metformin. DISCHARGE DIET: Step-2 gastric bypass diet with no cereal. Drink 8 to 10 glasses of water a day. ACTIVITY: No lifting greater than 10 pounds for 2 weeks. Other activity, walk 6 times daily inside your home. Driving, do not drive for 1 week. Shower bathing, may shower. Notify provider if any fever, increased pain, nausea, or vomiting. Wound incision care; keep site clean and dry. Wear abdominal binder for 2 weeks and then as tolerated. Special instructions: 1. Check blood sugars twice daily. Bring record to clinic appointments. 2. Use incentive spirometer 10 times every hour while awake for 1 week.
[2017-11-13] MEDS: Labetalol 100 MG Tab PO SCH (10:13)
--- NOTE | 2017-11-13 11:52 | OR ---
DATE OF PROCEDURE: 11/10/2017 PREOPERATIVE DIAGNOSIS: Diabetic gastroparesis with emerging complications. POSTOPERATIVE DIAGNOSES: 1. Diabetic gastroparesis with emerging complications. 2. Marked hepatomegaly. 3. For shortened small bowel mesentery limiting the small-bowel mobility. 4. Paraesophageal diaphragmatic hernia. PROCEDURES: Diagnostic laparoscopy with: 1. Partial gastrectomy with Caio-en-Y gastrojejunostomy, (63564). 2. Small bowel resection, (83142). 3. Aristides-Cut needle liver biopsy, (81014). 4. Repair of paraesophageal diaphragmatic hernia, (10435). ANESTHESIA: General. ASSISTANTS: 1. Miranda Quick PA-C. 2. OTONIEL Lopez. INDICATION FOR PROCEDURE: This is a 56-year-old female with longstanding diabetes who is recently having problems with marked abdominal epigastric distention along with some intermittent emesis and what appeared to be some aspiration of GI contents while sleeping with the patient waking up, coughing and having some sense of shortness of breath. The patient had been on anti-bezoar diet in anticipation of her having a poor gastric emptying. Upper endoscopy done in last week showed a large amount of bezoar present with quite a bit in the way of inflammation of the gastric wall diffusely, but the patient already having been on low-residue diet and it would appear that with the routine complications. The high proximal gastrectomy would be appropriate with the Caio-en-Y gastrojejunostomy. This would only leave a small remnant of proximal stomach, which would be safer to do anastomosis to then the esophagus and would allow the remainder of the more distal stomach gradually to empty and avoid ongoing complications of the gastroparesis. Potential risks of the procedure including bleeding, infection, leaks from various GI tract closures, problems with bowel obstruction overtime as well as possibility of cardiopulmonary, septic, or hemorrhagic complications leading to were all discussed, and the patient wishes to proceed. DETAILS OF PROCEDURE: The patient was taken to the operating room. After general endotracheal anesthesia was induced, she was placed in a lithotomy position. Martinez catheter was inserted along with a gastrointestinal catheter, and the abdomen was prepped and draped. At 15 cm inferior and 5 cm left of xiphoid process, transverse incision was made and the peritoneal cavity was entered under direct vision with an Optiview trocar inflated to 15 mmHg pressure with CO2. The laparoscope was reinserted. Bilateral subcostal transversus abdominis plane blocks were then placed with direct visualization of the needle and injection of the standard solution bilaterally. Following this, 5 additional trocars were placed across the upper and mid abdomen. The patient was noted to have quite fatty infiltrated enlarged liver. Given this Aristides-Cut needle biopsies were obtained from the left lobe of the liver and minimal bleeding from the biopsy sites were controlled with electrocautery. At this point, the omentum was then divided in the midline up to the level of the transverse colon. This allowed identification of the small bowel to the ligament of Treitz. Small bowel was then traced out 200 cm distal to that point, was divided transversely with a ISREAL stapler. Small bowel was then traced out an additional 150 cm, where the [id number] enteroenterostomy was accomplished with internal firing of the Endo-ISREAL 60 mm stapler. Common opening was then closed transversely with the same stapler. Angles of anastomosis and mesentery defect were approximated with some 0 Ethibond stitch along with fibrin sealant. The divided end of the Caio limb was then from the mesentery for a few centimeters, which allowed to be brought up to the level of esophagogastric junction without tension. The liver was then retracted anteriorly. The patient was noted to have a moderate-sized paraesophageal diaphragmatic hernia containing some duane-gastric fat, a portion of the fundus of the stomach and a ton of omentum. This was reduced and the sac divided and reflected downward. An anterior repair of the diaphragmatic hernia was then accomplished with 0 Ethibond sutures reinforced with PTFE pledgets. The proximal gastric resection was then accomplished with the gastrointestinal balloon catheter being inflated to 15 mL and pulled up snugly against the EG junction. Initially, the stomach was divided more or less flushed with what would be the contour of that tube getting into the small proximal gastric remnant, which would be functioning in more or less as a passive conduit. Portion of the stomach just below this was then resected as well with the remainder of the more distal stomach being left in place to gradually empty on its own overtime. The anvil of a 25-mm EEA stapler was attached to Madison sump type tube. The latter was brought down through the mouth and taken out through a small opening in the gastric remnant, this was then used to pull the anvil down to the gastric remnant as well, and the main body EEA stapler was then placed into the opening of the Caio limb, brought up the anvil and thus creating the gastrojejunostomy. Upon removal of the stapler, double donuts of the mucosa were noted within it. Small bowel was closed off with a vascular staple line. Gastrojejunostomy was then reinforced with some 3-0 Vicryl seromuscular stitch along with fibrin sealant. Leak test was accomplished with injection of 120 mL of air in the gastric pouch, while submerged with cefoxitin-containing saline solution. One González-Elizondo drain was then placed adjacent to the gastrojejunostomy, taken out subcostal trocar sites with no further problems noted. Trocars were removed. The peritoneal cavity deflated. Incisions were closed with 4-0 Vicryl skin stitch and drains affixed with 4-0 Vicryl stitch as well. The patient was taken to the recovery room in satisfactory condition. One additional finding in this case, was the small bowel was quite immobile due to marked fatty infiltration of the small bowel mesentery prior to the initial jejunojejunostomy. A segment of small bowel on the biliopancreatic limb site and this is being around 10 cm, was resected by means of a ISREAL stapler and mesentary harmonic scalpel. This allowed much more adequate mobility of the jejunojejunostomy to facilitate it being brought up to the level of the diaphragm with minimal attention. Physician assistant import manager, Miranda Quick, played an essential role in assisting in this case, helping to position the patient, retract structures as needed, as well as suturing and cutting sutures when indicated. Her presence improved the patient's safety and decreased the operative time. Ean Rivero MD /[id number]
== END 2017-11-13 09:35 | disposition home or self-care (01) | DRG 983 ==
LOC: JP.SDSSCHI 06:40 → JP.SDS 06:40 → EDSTATUS 09:45 → JP.2SS 11:35
PROVIDERS: ADMIT Surgery; ATTEND Surgery
PROC: 0D164ZA Bypass Stomach to Jejunum, Percutaneous Endoscopic Approach (ICD-10-PCS; principal; 2017-11-10)
PROC: 0FB24ZX Excision of Left Lobe Liver, Percutaneous Endoscopic Approach, Diagnostic (ICD-10-PCS; 2017-11-10)
PROC: 0BQT4ZZ Repair Diaphragm, Percutaneous Endoscopic Approach (ICD-10-PCS; 2017-11-10)
PROC: 0DB64ZZ Excision of Stomach, Percutaneous Endoscopic Approach (ICD-10-PCS; 2017-11-10)
PROC: 3E0T3BZ Introduction of Anesthetic Agent into Peripheral Nerves and Plexi, Percutaneous Approach (ICD-10-PCS; 2017-11-10)
PROC: 0DB84ZX Excision of Small Intestine, Percutaneous Endoscopic Approach, Diagnostic (ICD-10-PCS; 2017-11-10)
DX: E11.43 Type 2 diabetes mellitus with diabetic autonomic (poly)neuropathy (principal); K31.84 Gastroparesis; R16.0 Hepatomegaly, not elsewhere classified; K44.9 Diaphragmatic hernia without obstruction or gangrene; Z79.84 Long term (current) use of oral hypoglycemic drugs; K76.0 Fatty (change of) liver, not elsewhere classified; I10 Essential (primary) hypertension; E78.5 Hyperlipidemia, unspecified; K21.9 Gastro-esophageal reflux disease without esophagitis; E55.9 Vitamin D deficiency, unspecified; J30.9 Allergic rhinitis, unspecified; F32.9 Major depressive disorder, single episode, unspecified; E83.39 Other disorders of phosphorus metabolism; K59.8 Other specified functional intestinal disorders
CPT/HCPCS: 36415; 74240; 74240-26; 80053; 82962; 83036; 83735; 83880; 84100; 85025; 85027; 86850; 86900; 86901; 88307; 88313; 93005; A9270-GY; C9113; J0171; J0330; J0694; J1100; J1644; J2001; J2405; J2704; J2710; J2765; J2795; J3010; J3410; J3411; J3420; J3490; J7030; J7040; J7042; J7050; J7120; J7189; Q9967

== ENCOUNTER 2017-11-27 08:26 | Day surgery (SDC) | payer OTHER ==
[~2017-11-27 08:26] MED LIST: Midazolam 1 MG/ML 2 ML SDV ONE; Propofol 200 MG/20 ML SDV ONE; fentaNYL 100 MCG/2 ML SDV ONE
[2017-11-27] MEDS: Lactated Ringers 1,000 ML IV ONE ×2 (09:14→10:51)
[2017-11-27] MEDS ORDERED: Thiamine 200 MG/2 ML MDV IM ONE (09:38)
[2017-11-27] MEDS ORDERED: MVI, Adult with Vitamin K 10 ML, Thiamine 200 MG, Chromium/Copper/Mang/Selen/Zn 1 ML in... IV ONE ×4 (10:30)
[2017-11-27] MEDS ORDERED: Cyanocobalamin (Vitamin B12) 1,000 MCG/ML SDV IM ONE (10:30)
[2017-11-27] MEDS ORDERED: Glycopyrrolate 0.2 MG/ML 2 ML SDV IVPUSH ONE (10:30)
[2017-11-27 12:59] VITALS: BP 142/98
--- NOTE | 2017-12-08 08:02 | OR ---
DATE OF PROCEDURE: 11/27/2017 PREOPERATIVE DIAGNOSIS: Strictured gastrojejunostomy. POSTOPERATIVE DIAGNOSIS: Strictured gastrojejunostomy. PROCEDURE PERFORMED: Upper GI endoscopy with dilation of gastrojejunostomy (08483). ANESTHESIA: IV sedation. INDICATION FOR PROCEDURE: The patient was recently status post partial gastrectomy with Caio-en-Y gastrojejunostomy, and she proceeds now with stricturing at that anastomosis. Plan is to proceed with upper GI endoscopy with dilation as indicated. Potential risks including bleeding and perforation were discussed, and the patient wishes to proceed. DETAILS OF PROCEDURE: The patient was taken to the operating room, placed in the left lateral decubitus position. IV sedation was administered, after which the upper GI endoscope was passed orally through the length of the esophagus and into the gastric pouch. No food or fluid was noted retained within the pouch. The patient did have a moderate stricture present. A Bard gastrointestinal balloon catheter was then centered across the anastomosis. Again this being fairly early postop, we elected to use only a 30-Libyan dilator. This was inflated across the anastomosis and held in position for 1 minute, after which the balloon catheter was deflated and withdrawn. The scope was easily passed through the anastomosis. No complications were noted. The patient was taken to the recovery room in satisfactory condition. Ean Rivero MD Job #: [id number]
== END 2017-11-27 13:20 | disposition home or self-care (01) ==
LOC: JP.SDS 08:26
PROVIDERS: ATTEND Surgery
DX: K91.89 Other postprocedural complications and disorders of digestive system (principal); I10 Essential (primary) hypertension; F17.200 Nicotine dependence, unspecified, uncomplicated; K21.9 Gastro-esophageal reflux disease without esophagitis; Z90.3 Acquired absence of stomach [part of]; Z98.84 Bariatric surgery status
CPT/HCPCS: 43245; J2250; J2704; J3010; J3411; J3420; J7120; J3490

== ENCOUNTER 2023-01-03 09:26 | Day surgery (SDC) | payer BC, OTHER ==
[~2023-01-03 09:26] MED LIST changes: -fentaNYL 100 MCG/2 ML SDV ONE; +fentaNYL 50 MCG/ML SDV ONE
[2023-01-03] MEDS ORDERED: Sodium Chloride 0.9% 1,000 ML IV SCH (10:00)
[2023-01-03 12:52] VITALS: BP 153/94; PULSE 48
== END 2023-01-03 12:40 | disposition home or self-care (01) ==
LOC: JP.SDS 09:26
PROVIDERS: ATTEND Surgery
DX: Z12.11 Encounter for screening for malignant neoplasm of colon (principal); K63.5 Polyp of colon; I10 Essential (primary) hypertension; K21.9 Gastro-esophageal reflux disease without esophagitis; E11.9 Type 2 diabetes mellitus without complications; E78.5 Hyperlipidemia, unspecified; F17.200 Nicotine dependence, unspecified, uncomplicated
CPT/HCPCS: 45385; 88305; J2250; J2704; J3010; J7030